=== PATIENT | male | born 1980 | race Two or more races ===

== ENCOUNTER 2019-12-16 22:38 | Emergency (ER) | payer OTHER ==
[~2019-12-16] VITALS: Ht 165.1 cm; Wt 83.9 kg
[~2019-12-16 22:38] MED LIST: ULTRACET PO
[2019-12-17] MEDS ORDERED: NIFEDIPINE ER30 M1 PO (03:23)
== END 2019-12-17 03:31 | disposition home or self-care (01) ==
LOC: ER 22:38
DX: R03.0 Elevated blood-pressure reading, without diagnosis of hypertension (principal)

== ENCOUNTER 2019-12-18 23:16 | Emergency (ER) | payer OTHER ==
[~2019-12-18] VITALS: Ht 165.1 cm; Wt 82.6 kg
[~2019-12-18 23:16] MED LIST changes: +NIFEDIPINE ER30 M1 PO
[2019-12-19] MEDS ORDERED: NORFLEX100MG PO (03:10)
== END 2019-12-19 03:32 | disposition home or self-care (01) ==
LOC: ER 23:16
DX: M54.2 Cervicalgia (principal); M62.838 Other muscle spasm; I16.0 Hypertensive urgency; I10 Essential (primary) hypertension

== ENCOUNTER 2023-11-04 12:16 | Inpatient (IN) | payer OTHER ==
[~2023-11-04] VITALS: Ht 165.1 cm; Wt 82.6 kg
[~2023-11-04 12:16] MED LIST changes: +NORFLEX100MG PO
[2023-11-04] MEDS ORDERED: COZAAR50 MG (12:19)
--- NOTE | 2023-11-04 12:38 | NUR ---
SE RECIBE PTE ALERTA Y ORIENTADA X3. EL MISMO REFIERE QUE SE ENCONTRABA LAVANDO BASS BLANCA CUANDO COMENZO A SENTIR FALTA DE AIRE Y DOLOR EN BASS BRAZO ALEJANDRA QUE SE CORRE AL PECHO. SE MIDEN S/V, SE REALIZA EKG Y SE PRESENTA A EARL.JOEL SE UBICA EN UNIDAD DE CHEST PAIN CONECTADO A MONITOR CARDIACO Y OXIMETRIA DE PULSO CONTINUA.
[2023-11-04] MEDS ORDERED: ONDANSETRON HCL 2 MG/ML VIAL IV ONE (12:45)
[2023-11-04] MEDS ORDERED: METOPROLOL TARTRATE 5MG/5ML AMPUL IV ONE ×4 (12:45→20:15)
[2023-11-04] MEDS ORDERED: 0.9 % SODIUM CHLORIDE 1,000 ML IV ONE (12:45)
[2023-11-04] MEDS ORDERED: FAMOtidine 10 MG/ML (4ML VIAL) IV ONE (12:45)
[2023-11-04] MEDS ORDERED: MORPHINE SULFATE 4 MG/ML VIAL IV ONE (12:45)
[2023-11-04] MEDS ORDERED: ONDANSETRON HCL 2 MG/ML VIAL ONE (13:07)
[2023-11-04] MEDS ORDERED: FAMOTIDINE/PF 20 MG/2 ML VIAL ONE ×2 (13:07→19:31)
--- NOTE | 2023-11-04 13:07 | NUR ---
PACIENTE EVALUADO POR MD KWAN ORDENA TRATAMIENTO MEDICO, RAFY JONES LE ORIENTA A PACIENTE SOBRE EL MISMO Y VERBALIZA ENTENDER, LE COLECTA MUESTRAS DE LABORATORIO Y LE CANALIZA BAJO MEDIDAS ASEPTICAS, AREA DE VENOPUNCION PATENTE, KAMILLA DE EDEMA Y ERITEMA. LE ADMINISTRA MEDICAMENTOS KELSEY ORDEN Y BAJO MEDIDAS ASEPTICAS, PACIENTE TOLERA Y NO PRESENTA REACCION ADVERSA. PENDIENTE FIORELLA X.
[2023-11-04 13:14] LABS: HEMOGLOBIN 14.5 g/dL (13-16.00); MEAN CELL VOLUME 89.5 fL (80.0-100.00); MEAN CORPUSCULAR HEMOGLOBIN 30.9 pg (27.00-32.0); MEAN CORPUSCULAR HGB CONC 34.5 g/dl (32.0-36.0); PLATELET COUNT 312 K/uL (150-450); RED BLOOD COUNT 4.69 M/uL (4.00-6.00); RED CELL DISTRIBUTION WIDTH 12.8 % (11.5-14.5)
[2023-11-04 13:30] LABS: INR 0.98; PROTHROMBIN TIME 10.3 SECONDS (9.0-11.5)
[2023-11-04 13:34] LABS: ALBUMIN 4.5 gm/dL (3.4-5.0); BILIRUBIN TOTAL 0.46 mg/dL (0.3-1.2); CALCIUM 10.6 mg/dL (8.5-10.1); CREATININE SERUM 1.05 mg/dL (0.70-1.30); GFR 76.38; GLOBULINA 4.4 G/DL (2.4-3.5); POTASSIUM 4.35 mEq/L (3.5-5.1); TOTAL PROTEIN 8.9 gm/dL (6.4-8.2)
[2023-11-04 14:02] LABS: URINE APPEARANCE Cloudy; URINE BILIRRUBIN Negative (NEGATIVE); URINE BLOOD Moderate; URINE COLOR Yellow; URINE GLUCOSE Negative (NEGATIVE); URINE KETONE Negative (NEGATIVE); URINE LEUKOCYTE Negative; URINE NITRATE Negative; URINE PROTEIN 30 (NEGATIVE)
[2023-11-04 14:05] LABS: URINE EPITHELIAL CELLS 4.4 uL (0.0-38.8); URINE RBC 104.5 uL (0.0-20.8); URINE WBC 3.3 uL (0.0-23.2)
[2023-11-04 14:07] LABS: URINE BACTERIA 1.2 uL (0.0-1933); URINE CAST 0.15 uL (0.0-1.40)
[2023-11-04 14:19] LABS: ABG PH 7.422 (7.35-7.45); ABG PO2 74.4 mmHg (80-100); ABG pCO2 39.1 mmHg (35-45); BASE EXCESS 0.6 mmol/l; BICARBONATE 24.9 mmol/l (23-25); SaO2 95.1 %; Tco2 26.1 mmol/l; allen test SATISFACTORY; o2 21 %; puncture site RADIAL LEFT
[2023-11-04] MEDS ORDERED: NITROGLYCERIN IN 5 % DEXTROSE 50 MG/250 ML BOTTLE IV ONE (16:35)
[2023-11-04] MEDS ORDERED: ACETAMINOPHEN 500 MG GEL..CAP PO ONE (18:35)
[2023-11-04] MEDS ORDERED: FAMOTIDINE/PF 20 MG in 0.9 % SODIUM CHLORIDE 100 ML IV SCH (18:49)
[2023-11-04] MEDS ORDERED: NITROGLYCERIN IN 5 % DEXTROSE 250 ML IV SCH (18:51)
[2023-11-04] MEDS ORDERED: 0.9 % SODIUM CHLORIDE 1,000 ML IV SCH (19:00)
[2023-11-04 20:05] LABS: CHOL HDL RATIO 4.4 (0-5.0); MAGNESIUM 2.1 mg/dL (1.8-2.4)
[2023-11-05] MEDS ORDERED: METOPROLOL SUCCINATE 25 MG TAB.SR.24H PO SCH (09:00)
[2023-11-05] MEDS ORDERED: ATORVASTATIN CALCIUM 40 MG TABLET PO SCH (09:00)
[2023-11-05] MEDS ORDERED: LOSARTAN POTASSIUM 50 MG TABLET PO SCH (09:00)
[2023-11-05] MEDS ORDERED: ENOXAPARIN SODIUM 80 MG/0.8 ML SYRINGE SUBCUTANEO SCH (09:00)
[2023-11-05 11:35] LABS: ABG PH 7.405 (7.35-7.45); ABG PO2 183.3 mmHg (80-100); ABG pCO2 42.1 mmHg (35-45); BASE EXCESS 0.9 mmol/l; BICARBONATE 25.8 mmol/l (23-25); SaO2 99.6 %; Tco2 27.1 mmol/l
[2023-11-05 11:39] LABS: allen test SATISFACTORY; o2 36 %; puncture site RADIAL RIGHT
[2023-11-05] MEDS ORDERED: ACETAMINOPHEN 500 MG GEL..CAP PO PRN (20:45)
[2023-11-05] MEDS ORDERED: SODIUM CHLORIDE 0.45 % 1,000 ML IV SCH (20:45)
[2023-11-06] MEDS ORDERED: ISOSORBIDE MONONITRATE 30 MG TABLET PO SCH (09:00)
[2023-11-08 05:16] LABS: HEMATOCRIT 33.6 % (39.0-48.0); MEAN CELL VOLUME 88.9 fL (80.0-100.00); MEAN CORPUSCULAR HGB CONC 34.7 g/dl (32.0-36.0); PLATELET COUNT 264 K/uL (150-450); RED BLOOD COUNT 3.77 M/uL (4.00-6.00); RED CELL DISTRIBUTION WIDTH 12.6 % (11.5-14.5)
[2023-11-08 05:18] LABS: HEMOGLOBIN 11.6 g/dL (13-16.00); MEAN CORPUSCULAR HEMOGLOBIN 30.7 pg (27.00-32.0)
[2023-11-08 05:39] LABS: ALBUMIN 3.2 gm/dL (3.4-5.0); BILIRUBIN TOTAL 0.48 mg/dL (0.3-1.2); CALCIUM 8.8 mg/dL (8.5-10.1); CREATININE SERUM 0.95 mg/dL (0.70-1.30); GFR 85.73; GLOBULINA 3.3 G/DL (2.4-3.5); POTASSIUM 4.12 mEq/L (3.5-5.1); TOTAL PROTEIN 6.5 gm/dL (6.4-8.2)
== END 2023-11-08 15:48 | disposition home or self-care (01) | DRG 282 ==
LOC: ER 12:17 → MEDI 19:12
PROVIDERS: General Practice; ADMIT Internal Medicine; ATTEND Internal Medicine
PROC: B24BZZZ Ultrasonography of Heart with Aorta (ICD-10-PCS; principal; 2023-11-04)
PROC: 4A12X4Z Monitoring of Cardiac Electrical Activity, External Approach (ICD-10-PCS; 2023-11-04)
PROC: C23GYZZ Positron Emission Tomographic (PET) Imaging of Myocardium using Other Radionuclide (ICD-10-PCS; 2023-11-06)
DX: I21.4 Non-ST elevation (NSTEMI) myocardial infarction (principal); I20.0 Unstable angina; I11.9 Hypertensive heart disease without heart failure

== ENCOUNTER → 2023-11-12 | Emergency (ER) | payer OTHER ==
[~2023-11-12] MED LIST changes: +ACETAMINOPH; +ACETAMINOPHEN 500 MG GEL..CAP PO ONE; +COZAAR50 MG; +ELIQUIS2.5 MG PO; +ENOXAPARIN SODIUM 60 MG/0.6 ML SYRINGE SUBCUTANEO ONE; +LIPITOR40 M1 PO; +TOPROL XL25 M1; +TRAMADOL
== END | disposition left against medical advice (07) ==
LOC: ER 19:18
DX: Z53.21 Procedure and treatment not carried out due to patient leaving prior to being seen by health care provider (principal)

== ENCOUNTER 2023-11-13 08:25 | Inpatient (IN) | payer OTHER ==
[~2023-11-13] VITALS: Ht 165.1 cm; Wt 79.4 kg
[~2023-11-13 08:25] MED LIST changes: -ACETAMINOPH; -ACETAMINOPHEN 500 MG GEL..CAP PO ONE; -ELIQUIS2.5 MG PO; -ENOXAPARIN SODIUM 60 MG/0.6 ML SYRINGE SUBCUTANEO ONE; -LIPITOR40 M1 PO; -TOPROL XL25 M1; -TRAMADOL
[2023-11-13] MEDS ORDERED: LIPITOR40 M1 PO (08:41)
[2023-11-13] MEDS ORDERED: ELIQUIS2.5 MG PO (08:42)
[2023-11-13] MEDS ORDERED: TOPROL XL25 M1 (08:42)
[2023-11-13] MEDS ORDERED: TRAMADOL (08:45)
[2023-11-13] MEDS ORDERED: ACETAMINOPH (08:45)
[2023-11-13] MEDS ORDERED: DEXAMETHASONE SODIUM PHOSPHATE 4 MG/ML VIAL IV STA (09:20)
[2023-11-13] MEDS ORDERED: ACETAMINOPHEN WITH CODEINE 1 UDTAB TABLET PO STA (09:21)
[2023-11-13] MEDS ORDERED: DEXAMETHASONE SODIUM PHOSPHATE 4 MG/ML VIAL ONE (09:26)
[2023-11-13 09:51] LABS: HEMATOCRIT 37.6 % (39.0-48.0); HEMOGLOBIN 12.9 g/dL (13-16.00); MEAN CELL VOLUME 87.1 fL (80.0-100.00); MEAN CORPUSCULAR HEMOGLOBIN 29.9 pg (27.00-32.0); MEAN CORPUSCULAR HGB CONC 34.3 g/dl (32.0-36.0); PLATELET COUNT 389 K/uL (150-450); RED BLOOD COUNT 4.31 M/uL (4.00-6.00); RED CELL DISTRIBUTION WIDTH 12.7 % (11.5-14.5)
[2023-11-13 10:20] LABS: CALCIUM 9.7 mg/dL (8.5-10.1); CREATININE SERUM 0.99 mg/dL (0.70-1.30); GFR 81.75; POTASSIUM 4.44 mEq/L (3.5-5.1)
[2023-11-13 11:56] LABS: ABG PH 7.434 (7.35-7.45); ABG PO2 88.3 mmHg (80-100); BASE EXCESS -0.7 mmol/l; BICARBONATE 22.9 mmol/l (23-25)
[2023-11-13 12:01] LABS: allen test SATISFACTORY; puncture site RADIAL RIGHT
[2023-11-13 12:02] LABS: o2 21 %
[2023-11-13] MEDS ORDERED: ENOXAPARIN SODIUM 60 MG/0.6 ML SYRINGE SUBCUTANEO STA (12:38)
[2023-11-13] MEDS ORDERED: ENOXAPARIN SODIUM 80 MG/0.8 ML SYRINGE SUBCUTANEO SCH (20:42)
[2023-11-13] MEDS ORDERED: ATORVASTATIN CALCIUM 40 MG TABLET PO SCH (20:47)
[2023-11-13] MEDS ORDERED: METOPROLOL SUCCINATE 50 MG TAB.SR.24H PO SCH (20:47)
[2023-11-13] MEDS ORDERED: LOSARTAN POTASSIUM 50 MG TABLET PO SCH (20:48)
[2023-11-13] MEDS ORDERED: 0.9 % SODIUM CHLORIDE 80 ML IV SCH (21:00)
[2023-11-13] MEDS ORDERED: ENOXAPARIN SODIUM 80 MG/0.8 ML SYRINGE SUBCUTANEO ONE (22:00)
[2023-11-13 22:12] LABS: PH,URINE 5.5 (5.0-8.0); URINE APPEARANCE Clear; URINE BILIRRUBIN Negative (NEGATIVE); URINE BLOOD Moderate; URINE COLOR Yellow; URINE GLUCOSE Negative (NEGATIVE); URINE LEUKOCYTE Negative; URINE NITRATE Negative; URINE PROTEIN 30 (NEGATIVE)
[2023-11-13 22:16] LABS: URINE EPITHELIAL CELLS 5.8 uL (0.0-38.8); URINE RBC 90.8 uL (0.0-20.8); URINE WBC 5.7 uL (0.0-23.2)
[2023-11-13 22:18] LABS: URINE BACTERIA 1.2 uL (0.0-1933); URINE KETONE 40 (NEGATIVE)
[2023-11-13] MEDS ORDERED: SODIUM CHLORIDE IV SCH (22:30)
[2023-11-14] MEDS ORDERED: MORPHINE SULFATE 4 MG/ML CARTRIDGE IV SCH (00:11)
[2023-11-14 06:00] LABS: CALCIUM 9.6 mg/dL (8.5-10.1); CREATININE SERUM 0.76 mg/dL (0.70-1.30); GFR 110.91; POTASSIUM 4.64 mEq/L (3.5-5.1)
[2023-11-14] MEDS ORDERED: METOPROLOL SUCCINATE 25 MG TAB.SR.24H PO SCH (09:00)
[2023-11-14] MEDS ORDERED: MEMANTINE HCL 5 MG TABLET PO SCH (09:00)
[2023-11-14] MEDS ORDERED: LEVOTHYROXINE SODIUM 112 MCG TABLET PO SCH (09:00)
[2023-11-14] MEDS ORDERED: LOSARTAN POTASSIUM 50 MG TABLET PO SCH (09:00)
[2023-11-14] MEDS ORDERED: DONEPEZIL HCL 10 MG TABLET PO SCH (09:00)
[2023-11-14] MEDS ORDERED: MORPHINE SULFATE 2 MG/ML CARTRIDGE IV SCH (13:00)
[2023-11-15 06:54] LABS: C-REACTIVE PROTEIN 9.96 MG/DL (0.00-0.29)
[2023-11-15] MEDS ORDERED: APIXABAN 5 MG TABLET PO SCH (09:00)
[2023-11-15 09:11] LABS: ABG PH 7.416 (7.35-7.45); ABG PO2 77.9 mmHg (80-100); BASE EXCESS 1.1 mmol/l; SaO2 94.2 %
[2023-11-15 09:12] LABS: BICARBONATE 25.8 mmol/l (23-25); allen test SATISFACTORY; o2 21 %; puncture site RADIAL RIGHT
[2023-11-19 10:04] LABS: ANTI CARDIO IGG < 9 GPL U/mL (0-14); ANTI CARDIO IGM < 9 MPL U/mL (0-12); HOMOCYSTEINE 8.3 umol/L (0.0-14.5)
== END 2023-11-16 15:25 | disposition home or self-care (01) | DRG 299 ==
LOC: ER 08:27 → MEDI 20:54
PROVIDERS: General Practice; Internal Medicine; Internal Medicine Hematology & Oncology; Student in an Organized Health Care Education/Training Program; ADMIT Internal Medicine; ATTEND Internal Medicine
PROC: B54CZZZ Ultrasonography of Left Lower Extremity Veins (ICD-10-PCS; principal; 2023-11-13)
PROC: BB24YZZ Computerized Tomography (CT Scan) of Bilateral Lungs using Other Contrast (ICD-10-PCS; 2023-11-13)
PROC: B246ZZZ Ultrasonography of Right and Left Heart (ICD-10-PCS; 2023-11-15)
DX: I82.492 Acute embolism and thrombosis of other specified deep vein of left lower extremity (principal); I26.99 Other pulmonary embolism without acute cor pulmonale; I10 Essential (primary) hypertension; Z79.01 Long term (current) use of anticoagulants